=== PATIENT | male | born 1950 | race Caucasian/White ===

== ENCOUNTER 2017-02-15 08:05 | Day surgery (SDC) | payer BC ==
[~2017-02-15] VITALS: Ht 177.8 cm; Wt 80.0 kg
[~2017-02-15 08:05] MED LIST: ASPIRIN325 MG PO; ATORVASTATIN CA80 MG PO; CLOPIDOGREL75 MG PO; IBUPROFEN200 M1 PO; LIPITOR80 MG PO; LISINOPRIL5 MG PO; METOPROLOL SUCC25 MG PO; PLAVIX75 MG PO; TOPROL XL25 MG PO; ZESTRIL5 MG PO
[2017-02-15 08:22] VITALS: BP 135/81
[2017-02-15] MEDS ORDERED: PERCOCET 5/31 TABLET PO (11:53)
[2017-02-15 12:54] VITALS: BP 123/74
[2017-02-15 13:58] VITALS: BP 129/67
[2017-02-15 15:30] VITALS: BP 129/67
[2017-02-15 16:15] VITALS: BP 126/70
== END 2017-02-15 17:10 | disposition home or self-care (01) ==
LOC: SDC 08:05
PROC: 0WUF4JZ Supplement Abdominal Wall with Synthetic Substitute, Percutaneous Endoscopic Approach (ICD-10-PCS; principal; 2017-02-15)
DX: K42.0 Umbilical hernia with obstruction, without gangrene (principal); I10 Essential (primary) hypertension; K21.9 Gastro-esophageal reflux disease without esophagitis; I25.10 Atherosclerotic heart disease of native coronary artery without angina pectoris; E78.5 Hyperlipidemia, unspecified; F17.210 Nicotine dependence, cigarettes, uncomplicated; I25.2 Old myocardial infarction; Z95.1 Presence of aortocoronary bypass graft; Z82.49 Family history of ischemic heart disease and other diseases of the circulatory system; Z83.3 Family history of diabetes mellitus; Z79.82 Long term (current) use of aspirin; Z79.02 Long term (current) use of antithrombotics/antiplatelets
CPT/HCPCS: C1781; J0330; J0690; J1100; J2250; J2405; J3010; S0020